=== PATIENT | male | born 1955 | race Caucasian/White ===

== ENCOUNTER → 2017-06-03 | Day surgery (SDC) | payer OTHER ==
[~2017-06-03] MED LIST: KETOROLAC TROMETHAMINE 30 MG/ML (IVP) VIAL IV PUSH ONE; LIDOCAINE 1%/EPINEPHrine 1:100,000 SOLN 50 ML VIAL ONE; MIDAZOLAM HCL 2 MG/2 ML VIAL ONE; ONDANSETRON HCL 4 MG/2 ML VIAL IV PUSH ONE; PROPOFOL 200 MG/20 ML AMP IV ONE; ceFAZolin INJ 1,000 MG VIAL ONE
--- NOTE | 2017-06-03 14:39 | TN ---
cc: AZEEM RICHARD M.D. DATE OF SURGERY: 06/03/2017 PREOPERATIVE DIAGNOSIS Right hand ring finger stenosing tenosynovitis. POSTOPERATIVE DIAGNOSIS Right hand ring finger stenosing tenosynovitis. PROCEDURE Right hand ring finger trigger finger release. SURGEON Rakesh Richard MD. ASSESSMENT Staff. SPECIMEN None. ESTIMATED BLOOD LOSS None. COMPLICATIONS None. ANESTHESIA TIVA, local. DRAINS None. TOURNIQUET TIME 3 minutes at 200 mmHg. CONDITION Stable. PLAN OF ACTIVITY Per orders. DETAILS OF PROCEDURE The patient was brought into the operating room and had satisfactory anesthesia by the Department of Anesthesia. The right hand and upper extremity was prepped and draped in the usual sterile manner. The extremity was exsanguinated by Marino wrap. The tourniquet was inflated to 200 mmHg. 5 cc of 1% lidocaine with epinephrine was used to infiltrate the operative site. A small longitudinal incision was made over the MP joint and the A1 shy of the ring finger. Dissection was carried through skin and subcutaneous tissue. The soft tissue was gently retracted medially and laterally down onto the flexor tendon sheath. A longitudinal incision was made with a 15 blade. Metzenbaum scissors were also used to perform the complete decompression. The patient was then able to actively flex and extend his hand with no further triggering. The wound was closed in layers with 3-0 Vicryl. Skin was approximated with interrupted 2-0 nylon. Sterile dressings were applied. The tourniquet was deflated. The patient tolerated the procedure well and arrived in the recovery room in stable and satisfactory condition. MD ALYCE Dimas/BRUCE /2:19 PM /2:25 PM
== END | disposition home or self-care (01) ==
LOC: ESDC 11:37
PROVIDERS: ATTEND Orthopaedic Surgery Orthopaedic Surgery of the Spine
DX: M65.341 Trigger finger, right ring finger (principal); Z01.810 Encounter for preprocedural cardiovascular examination
CPT/HCPCS: 01810; 26055; 93005; J0690; J1885; J2250; J2405; J3010